=== PATIENT | male | born 1990 | race African-American/Black ===

== ENCOUNTER 2017-05-03 16:04 | Emergency (ER) | payer SELFPAY ==
[~2017-05-03] VITALS: Ht 182.9 cm; Wt 74.8 kg
[2017-05-03 16:05] VITALS: BP 147/86
[2017-05-03] MEDS ORDERED: IBUPROFEN 600 MG TABLET PO ONE ×2 (16:27→16:30)
[2017-05-03] MEDS ORDERED: TDAP [DIPH/PERTUSSIS/TET] 0.5 ML VIAL IM ONE ×2 (16:27→16:30)
== END 2017-05-03 17:17 | disposition home or self-care (01) ==
LOC: ER 16:06
DX: S43.401A Unspecified sprain of right shoulder joint, initial encounter (principal); V43.62XA Car passenger injured in collision with other type car in traffic accident, initial encounter; Y93.89 Activity, other specified; Y92.488 Other paved roadways as the place of occurrence of the external cause; Y99.8 Other external cause status
CPT/HCPCS: 73030-TC; 90715; A4606; Z7610